=== PATIENT | male | born 1995 | race Caucasian/White ===

== ENCOUNTER 2018-09-07 12:07 | Day surgery (SDC) | payer OTHER | END 2018-09-07 14:40 | disposition home or self-care (01) | LOC: AMB-ENDOS 12:07 | DX: K92.1 Melena (principal); K64.1 Second degree hemorrhoids ==

== ENCOUNTER → 2019-06-26 | Outpatient (CLI) | payer OTHER | END | disposition home or self-care (01) | LOC: NUCLEAR 08:30 | DX: K80.20 Calculus of gallbladder without cholecystitis without obstruction (principal) | CPT/HCPCS: 78227; A9537 ==